=== PATIENT | female | born 1975 | race Caucasian/White ===

== ENCOUNTER 2023-03-10 13:22 | Outpatient (CLI) | payer OTHER, SELFPAY | END 2023-03-10 13:23 | disposition home or self-care (01) | PROVIDERS: PCP Family Medicine; Visit Provider Family Medicine | DX: Z13.220 Encounter for screening for lipoid disorders (principal); Z13.228 Encounter for screening for other metabolic disorders; F39 Unspecified mood [affective] disorder; Z79.899 Other long term (current) drug therapy | CPT/HCPCS: 80053; 80061; 86803 ==

== ENCOUNTER 2023-04-11 09:26 | Outpatient (CLI) | payer OTHER, SELFPAY ==
--- NOTE | 2023-04-11 11:10 | W.ANESCHARGE ---
Anesthesia Charges Start Date/Time Anesthesia Start Date: 04/11/23 Anesthesia Start Time: 10:48 Stop Date/Time Anesthesia Stop Date: 04/11/23 Anesthesia Stop Time: 11:09
--- NOTE | 2023-04-11 11:11 | W.ANESCHARGE ---
Anesthesia Charges Start Date/Time Anesthesia Start Date: 04/11/23 Anesthesia Start Time: 10:48 Stop Date/Time Anesthesia Stop Date: 04/11/23 Anesthesia Stop Time: 11:09
== END 2023-04-11 09:27 | disposition home or self-care (01) ==
LOC: OP CLINIC 09:27
PROVIDERS: PCP Family Medicine; Visit Provider Internal Medicine
DX: Z12.11 Encounter for screening for malignant neoplasm of colon (principal)
CPT/HCPCS: 00811; 00812; 45378; J2405; J2704

== ENCOUNTER 2024-03-27 07:30 | Outpatient (CLI) | payer OTHER, SELFPAY | END 2024-03-27 07:31 | disposition home or self-care (01) | PROVIDERS: PCP Family Medicine; Visit Provider Family Medicine | DX: Z13.228 Encounter for screening for other metabolic disorders (principal); Z13.220 Encounter for screening for lipoid disorders | CPT/HCPCS: 80053; 80061 ==